=== PATIENT | male | born 1985 | race African-American/Black ===

== ENCOUNTER 2023-02-09 11:30 | Emergency (ER) | payer MEDICAID ==
[~2023-02-09] VITALS: Ht 175.3 cm; Wt 111.0 kg
[2023-02-09 12:38] LABS: BASOPHILS % 0.7 % (0.0-2.0); HEMOGLOBIN. 12.9 g/dL (14.0-18.0); LYMPHOCYTES % 27.1 % (20.0-50.0); MEAN CORPUSCULAR HEMOGLOBIN 30.9 pg (28.0-32.0); MEAN CORPUSCULAR VOLUME 91.1 fL (80.0-94.0); MEAN PLATELET VOLUME 9.6 fl (7.4-10.4); MONOCYTES % 11.8 % (2.0-8.0); NEUTROPHILS % 59.4 % (40.0-76.0); PLATELET 268 x1000/uL (130-400); RED BLOOD CELL COUNT 4.17 mill/uL (4.7-6.1); RED CELL DISTRIBUTION WIDTH 13.3 % (11.6-14.6)
[2023-02-09 12:45] LABS: CHLORIDE 110 mEq/L (98-107)
[2023-02-09 13:12] LABS: ETHANOL BLOOD < 10 mg/dL (-10)
[2023-02-09] MEDS ORDERED: LORAZEPAM 2MG/ML CPJ IM ONE (13:30)
[2023-02-09] MEDS ORDERED: HALOPERIDOL LACTATE 5MG/ML VIAL IM ONE (13:30)
[2023-02-09] MEDS ORDERED: DIPHENHYDRAMINE 50MG/ML VIAL IM ONE (13:30)
[2023-02-09 15:45] LABS: CLARITY URINE CLEAR (CLEAR); COLOR URINE YELLOW (YELLOW); KETONES URINE NEGATIVE (NEGATIVE); LEUKOCYTE ESTERASE URINE NEGATIVE (NEGATIVE); NITRITE URINE NEGATIVE (NEGATIVE); OCCULT BLOOD URINE NEGATIVE (NEGATIVE); PH URINE 5.5 (4.5-8.0); PROTEIN URINE NEGATIVE (NEGATIVE); SPECIFIC GRAVITY URINE 1.021 (1.005-1.030)
[2023-02-09 16:05] LABS: *AMPHETAMINES SCREEN URINE PRESUMTIVE POSITIVE (NEGATIVE); *BARBITURATES SCREEN URINE NEGATIVE (NEGATIVE); *BENZODIAZEPINES SCREEN URINE NEGATIVE (NEGATIVE); *COCAINE SCREEN URINE NEGATIVE (NEGATIVE); CANNABINOID URINE SCREEN PRESUMTIVE POSITIVE (NEGATIVE); METHADONE URINE SCREEN NEGATIVE (NEGATIVE); OPIATES URINE SCREEN NEGATIVE (NEGATIVE); PHENCYCLIDINE URINE SCREEN NEGATIVE (NEGATIVE)
[2023-02-10] MEDS ORDERED: LORAZEPAM 1MG TABLET PO ONE (15:15)
[2023-02-10] MEDS ORDERED: OLANZAPINE 5MG TABLET PO SCH (15:15)
[2023-02-10 19:50] VITALS: BP 148/94
== END 2023-02-10 20:04 | disposition short-term general hospital (02) ==
LOC: ER 11:30
DX: R45.1 Restlessness and agitation (principal); F20.9 Schizophrenia, unspecified; F22 Delusional disorders; F12.10 Cannabis abuse, uncomplicated; F15.10 Other stimulant abuse, uncomplicated; Z20.822 Contact with and (suspected) exposure to COVID-19
CPT/HCPCS: 36415; 80053; 80305; 80307; 80320; 80329; 81003; 85025; 87426; 96372; 99285; C9803; J1200; J1630; J2060; Z7610; G0480

== ENCOUNTER 2023-10-08 13:01 | Emergency (ER) | payer MEDICAID ==
[~2023-10-08] VITALS: Ht 172.7 cm; Wt 105.0 kg
[2023-10-08 13:11] VITALS: BP 131/92; PULSE 92; RESP 16; TEMP 97.8; O2SAT 98
== END 2023-10-08 15:57 | disposition home or self-care (01) ==
LOC: ER 13:01
DX: G56.31 Lesion of radial nerve, right upper limb (principal); Z98.890 Other specified postprocedural states
CPT/HCPCS: 99281

== ENCOUNTER 2024-01-25 08:37 | Emergency (ER) | payer MEDICAID ==
[~2024-01-25] VITALS: Ht 167.6 cm; Wt 110.0 kg
[2024-01-25 08:50] VITALS: O2SAT 98
[2024-01-25] MEDS ORDERED: CEPH500T MT (10:28)
[2024-01-25 10:34] VITALS: BP 131/77; PULSE 99; RESP 18; TEMP 98.8
== END 2024-01-25 10:37 | disposition home or self-care (01) ==
LOC: ER 08:37
DX: S51.811D Laceration without foreign body of right forearm, subsequent encounter (principal); X58.XXXD Exposure to other specified factors, subsequent encounter
CPT/HCPCS: 99283